=== PATIENT | female | born 1930 | race Caucasian/White ===

== ENCOUNTER 2019-12-02 09:13 | Emergency (ER) | payer MEDICARE ==
[2019-12-02] MEDS ORDERED: ACET/COD 300 MG/30 MG STARTER PACK 6 TAB BTL PO STA (09:37)
[2019-12-02] MEDS ORDERED: IBUPROFEN 600 MG TAB PO STA (09:37)
--- NOTE | 2019-12-02 09:41 | ED ---
Extremity Problem HPI - General Chief complaint: Extremity Problem,Nontraumatic Stated complaint: rt leg, knee pain Time Seen by Provider: 12/02/19 09:21 Source: patient, RN notes reviewed, old records reviewed Mode of arrival: wheelchair Limitations: no limitations - History of Present Illness Initial comments: Patient is a pleasant 89-year-old female who presents emergency department today for evaluation for right knee pain. Patient reports the pain has been progressive over the past 4 days. Patient reports is worse with ambulation. Patient states that she has been relatively healthy. She states that she has had some pain radiating behind the knee. Patient reports that she does walk frequently. Patient states that she has no fevers or chills. She denies any chest pain or shortness of breath. - Related Data Home Medications Medication Instructions Recorded Confirmed Levothyroxine Sodium [Levoxyl] 75 mcg PO DAILY 08/09/15 08/09/15 Losartan Potassium 100 mg PO BID 08/09/15 08/09/15 Verapamil HCl [Verapamil ER] 180 mg PO BID 08/09/15 08/09/15 Previous Rx's Medication Instructions Recorded Naproxen 500 mg PO BID #20 tablet 12/02/19 Allergies Allergy/AdvReac Type Severity Reaction Status Date / Time No Known Allergies Allergy Verified 12/02/19 09:14 Review of Systems ROS Statement: Those systems with pertinent positive or pertinent negative responses have been documented in the HPI. ROS Other: All systems not noted in ROS Statement are negative. Past Medical History Past Medical History: Hyperlipidemia, Hypertension, Thyroid Disorder History of Any Multi-Drug Resistant Organisms: None Reported Past Surgical History: No Surgical Hx Reported Past Psychological History: No Psychological Hx Reported Smoking Status: Never smoker Past Alcohol Use History: Daily Past Drug Use History: None Reported General Exam - General Exam Comments Initial Comments: 89-year-old female. No distress. Limitations: no limitations General appearance: alert, in no apparent distress Head exam: Present: atraumatic, normocephalic, normal inspection Eye exam: Present: normal appearance, PERRL, EOMI. Absent: scleral icterus, conjunctival injection, periorbital swelling ENT exam: Present: normal exam, mucous membranes moist Neck exam: Present: normal inspection. Absent: tenderness, meningismus, lymphadenopathy Respiratory exam: Present: normal lung sounds bilaterally. Absent: respiratory distress, wheezes, rales, rhonchi, stridor Cardiovascular Exam: Present: regular rate, normal rhythm, normal heart sounds. Absent: systolic murmur, diastolic murmur, rubs, gallop, clicks GI/Abdominal exam: Present: soft, normal bowel sounds. Absent: distended, tenderness, guarding, rebound, rigid Extremities exam: Present: normal inspection, full ROM, normal capillary refill. Absent: tenderness, pedal edema, joint swelling, calf tenderness Right Upper Leg exam: Present: normal inspection, full ROM Knee exam: Present: tenderness (Patient has some tenderness over the medial knee. No erythema.), swelling, effusion. Absent: normal inspection, full ROM Lower Leg exam: Present: normal inspection, full ROM Ankle exam: Present: normal inspection, full ROM Foot/Toe exam: Present: normal inspection, full ROM Neurovascular tendon exam: Present: no vascular compromise Gait: observed and normal Back exam: Present: normal inspection Neurological exam: Present: alert, oriented X3, CN II-XII intact Psychiatric exam: Present: normal affect, normal mood Skin exam: Present: warm, dry, intact, normal color. Absent: rash Course Vital Signs 12/02/19 09:16 Temperature 97.6 F Pulse Rate 64 Respiratory 18 Rate Blood Pressure 159/75 O2 Sat by Pulse 97 Oximetry Medical Decision Making - Medical Decision Making Patient is an 89-year-old female who presents emergency department today for evaluation for right knee pain. Worsening pain for the past 4 days. Patient reports pain is worse with movement. She also has some evidence of varicose vein, and he complains some posterior knee pain. Ultrasound today is negative for DVT. X-ray does show significant arthritis. Patient instructed with orthopedic for possible knee injection. I discussed intently with her medication for pain. She was given a starter pack and Tylenol codeine. Discussed rest ice and elevate the knee. Discussed return parameters. - Radiology Data Radiology results: report reviewed X-ray of the knee shows no acute fracture dislocation. 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 Ultrasound of the lower sternum and he shows no evidence of DVT. Disposition Clinical Impression: Arthritis of knee, right Disposition: HOME SELF-CARE Condition: Good Instructions (If sedation given, give patient instructions): Naproxen (By mouth), Osteoarthritis (ED) Additional Instructions: Patient advised to use inflammatory medication. Recommended following up with your primary care physician orthopedic. Patient can wear Mat wrap and knee sleeve. Follow-up with your general practitioner as well. Prescriptions: Naproxen 500 mg PO BID #20 tablet Is patient prescribed a controlled substance at d/c from ED?: No Referrals: Brayan Gregory MD [Primary Care Provider] - 1-2 days Gorge Mathew MD [Medical Doctor] - 1-2 days Time of Disposition: 11:09
--- NOTE | 2019-12-02 10:04 | XR ---
EXAMINATION TYPE: XR knee complete RT DATE OF EXAM: 12/02/2019 CLINICAL HISTORY: Right knee pain for 4 days with no known injury TECHNIQUE: Three views of the right knee are obtained. COMPARISON: None. FINDINGS: There is no acute fracture/dislocation evident in right knee. The tri-compartment joint s paces appear aligned with mild medial compartment and patellofemoral compartment joint space narrowin g and medial as well as lateral compartment chondrocalcinosis. The overlying soft tissue appears unr emarkable. IMPRESSION: There is no acute fracture or dislocation in the right knee. Mild to moderate tricompart mental arthrosis with bicompartmental chondrocalcinosis.
--- NOTE | 2019-12-02 10:43 | US ---
EXAMINATION TYPE: US venous doppler duplex LE RT DATE OF EXAM: 12/02/2019 9:38 AM COMPARISON: NONE CLINICAL HISTORY: pain. SIDE PERFORMED: Right TECHNIQUE: The lower extremity deep venous system is examined utilizing real time linear array sonog any with graded compression, doppler sonography and color-flow sonography. VESSELS IMAGED: External Iliac Vein (EIV) Common Femoral Vein Deep Femoral Vein Greater Saphenous Vein * Femoral Vein Popliteal Vein Small Saphenous Vein * Proximal Calf Veins (* superficial vessels) Grayscale, color doppler, spectral doppler imaging performed of the deep veins of the right lower ext remity. There is normal flow, compressibility, vascular waveforms. Right Leg: Negative for DVT IMPRESSION: No sonographic evidence of deep venous thrombosis within the right lower extremity.
[2019-12-02 11:23] VITALS: BP 140/96; PULSE 69; RESP 16; TEMP 97.2
== END 2019-12-02 11:23 | disposition home or self-care (01) ==
LOC: EC 09:13
DX: M17.11 Unilateral primary osteoarthritis, right knee (principal); I83.90 Asymptomatic varicose veins of unspecified lower extremity; M79.604 Pain in right leg; E07.9 Disorder of thyroid, unspecified; E78.5 Hyperlipidemia, unspecified; I10 Essential (primary) hypertension; Z79.890 Hormone replacement therapy; Z79.899 Other long term (current) drug therapy
CPT/HCPCS: 99284